=== PATIENT | male | born 1995 | race Caucasian/White ===

== ENCOUNTER 2017-11-14 16:10 | Emergency (ER) | payer SELFPAY ==
[~2017-11-14] VITALS: Ht 182.9 cm; Wt 82.0 kg
[~2017-11-14 16:10] MED LIST: ALBU6.7H INH
[2017-11-14 16:17] VITALS: BP 140/62; PULSE 77; RESP 18; O2SAT 98
[2017-11-14] MEDS ORDERED: SODIUM CHLORIDE 0.9% FLUSH 10 ML FLUSH IVF PRN (17:45)
[2017-11-14 18:47] LABS: AUTOMATED NEUTROPHIL # 6.5 TH/MM3 (1.8-7.7); BASOPHIL # 0.1 TH/MM3 (0-0.2); BASOPHIL % 0.6 % (0.0-2.0); EOSINOPHIL # 0.1 TH/MM3 (0-0.4); HEMATOCRIT 46.1 % (39.0-51.0); HEMOGLOBIN 15.6 GM/DL (13.0-17.0); LYMPH % 19.5 % (9.0-44.0); LYMPHOCYTE # 1.8 TH/MM3 (1.0-4.8); MEAN CELL VOLUME 92.1 FL (80.0-100.0); MEAN CORPUSCULAR HEMOGLOBIN 31.2 PG (27.0-34.0); MEAN CORPUSCULAR HGB CONC 33.9 % (32.0-36.0); MEAN PLATELET VOLUME 8.9 FL (7.0-11.0); MONO % 9.2 % (0.0-8.0); MONOCYTE # 0.9 TH/MM3 (0-0.9); NEUT % 69.7 % (16.0-70.0); PLATELET COUNT 309 TH/MM3 (150-450); RED BLOOD COUNT 5.01 MIL/MM3 (4.50-5.90); RED CELL DISTRIBUTION WIDTH 13.3 % (11.6-17.2); WHITE BLOOD COUNT 9.3 TH/MM3 (4.0-11.0)
[2017-11-14 18:56] LABS: INTERNATIONAL NORMALIZED RATIO 1.1 RATIO; PROTHROMBIN TIME - PATIENT 10.7 SEC (9.8-11.6)
[2017-11-14 19:07] LABS: CREATININE 1.19 MG/DL (0.60-1.30)
--- NOTE | 2017-11-14 19:09 | PD ---
HPI . Rectal bleeding Chief Complaint: GI Complaint Time Seen by Provider: 17:45 Travel History International Travel<30 days: No Contact w/Intl Traveler<30days: No History of Present Illness HPI This patient presents with rectal bleeding. He had one episode just prior to arrival. He states that he had the urge to defecate but passed only blood. He denies any abdominal pain. He has not been running any fever. He denies any hemorrhoids or rectal pain. He denies any previous similar history. He denies any medical problems at all. He is not aware of any causative factor. [facility] Past Medical History ADHD: Yes Diminished Hearing: No GERD: Yes Psychiatric: Yes (ADHD) Immunizations Current: Yes Migraines: Yes Seizures: No Tetanus Vaccination: > 5 Years Influenza Vaccination: No Past Surgical History Surgical History: No Previous Surgery Other Surgery: No Social History Alcohol Use: No Tobacco Use: No Substance Use: Yes ([facility]) Allergies-Medications (Allergen,Severity, Reaction): Coded Allergies: No Known Allergies (Verified , 06/24/14) Reported Meds & Prescriptions Reported Meds & Active Scripts Active No Active Prescriptions or Reported Medications Review of Systems Except as stated in HPI: all other systems reviewed are Neg Gastrointestinal: Positive: Hematochezia, No: Nausea, Vomiting, Abdominal Pain Physical Exam Narrative GENERAL: Awake and alert and in no acute distress. SKIN: Warm and dry. HEAD: Normocephalic/atraumatic. EYES: Pupils are equal. Extraocular movements are intact. NECK: Normal range of motion. CARDIOVASCULAR: Regular rate and rhythm. RESPIRATORY: Nonlabored respirations. ABDOMEN: Soft and nontender. RECTAL: There is no stool in the rectal vault. There is no external hemorrhoid. MUSCULOSKELETAL: Atraumatic. NEUROLOGICAL: Nonfocal. PSYCHIATRIC: Appropriate mood and affect. Data Data Last Documented VS Vital Signs Date Time Temp Pulse Resp B/P (MAP) Pulse Ox O2 Delivery O2 Flow Rate FiO2 11/14/17 17:30 16 11/14/17 16:17 77 140/62 (88) 98 Orders Orders Basic Metabolic Panel (Bmp) (11/14/17 17:45) Complete Blood Count With Diff (11/14/17 17:45) Prothrombin Time / Inr (Pt) (11/14/17 17:45) Act Partial Throm Time (Ptt) (11/14/17 17:45) Iv Access Insert/Monitor (11/14/17 17:45) Sodium Chloride 0.9% Flush (Ns Flush) (11/14/17 17:45) Ct Abd/Pel W Iv Contrast(Rout) (11/14/17 17:45) Labs Laboratory Tests Test 11/14/17 18:00 White Blood Count 9.3 TH/MM3 Red Blood Count 5.01 MIL/MM3 Hemoglobin 15.6 GM/DL Hematocrit 46.1 % Mean Corpuscular Volume 92.1 FL Mean Corpuscular Hemoglobin 31.2 PG Mean Corpuscular Hemoglobin Concent 33.9 % Red Cell Distribution Width 13.3 % Platelet Count 309 TH/MM3 Mean Platelet Volume 8.9 FL Neutrophils (%) (Auto) 69.7 % Lymphocytes (%) (Auto) 19.5 % Monocytes (%) (Auto) 9.2 % Eosinophils (%) (Auto) 1.0 % Basophils (%) (Auto) 0.6 % Neutrophils # (Auto) 6.5 TH/MM3 Lymphocytes # (Auto) 1.8 TH/MM3 Monocytes # (Auto) 0.9 TH/MM3 Eosinophils # (Auto) 0.1 TH/MM3 Basophils # (Auto) 0.1 TH/MM3 CBC Comment DIFF FINAL Differential Comment Prothrombin Time 10.7 SEC Prothromb Time International Ratio 1.1 RATIO Activated Partial Thromboplast Time 24.3 SEC Blood Urea Nitrogen 13 MG/DL Creatinine 1.19 MG/DL Random Glucose 90 MG/DL Calcium Level 10.0 MG/DL Sodium Level 140 MEQ/L Potassium Level 4.0 MEQ/L Chloride Level 103 MEQ/L Carbon Dioxide Level 31.0 MEQ/L Anion Gap 6 MEQ/L Estimat Glomerular Filtration Rate 75 ML/MIN [facility] Medical Decision Making Medical Screen Exam Complete: Yes Emergency Medical Condition: Yes Differential Diagnosis Differential diagnosis includes but is not limited to hemorrhoid, diverticulitis , cancer, coagulopathy Narrative Course This is a young man who presents with the chief complaint of rectal bleeding. He did not have any stool in the rectal vault but the mucus was Hemoccult positive. There was no hemorrhoid palpable or visible to explain blood. Routine GI bleed labs have been ordered as well as a CT of his abdomen. His care is being turned over to Dr. barrett at change of shift. [facility] Point of Care Internal Pos. & Neg. Controls: Passed Fecal Specimen Occult Blood: Positive Diagnosis Primary Impression: Rectal bleeding Scripts No Active Prescriptions or Reported Meds Condition: Estefani Barboza MD Nov 14, 2017 19:09
[2017-11-14 19:10] VITALS: BP 108/58; PULSE 68; RESP 18; O2SAT 100
[2017-11-14] MEDS ORDERED: IOHEXOL 350 MG/ML 10 ML VIAL (for RAD DIAG) IVCONTRAST ONE (19:37)
--- NOTE | 2017-11-14 20:45 | PD ---
Physical Exam Narrative Patient was seen by ED physician and signed out to me. Data Data Last Documented VS Vital Signs Date Time Temp Pulse Resp B/P (MAP) Pulse Ox O2 Delivery O2 Flow Rate FiO2 11/14/17 19:10 68 18 108/58 (75) 100 Room Air Orders Orders Basic Metabolic Panel (Bmp) (11/14/17 17:45) Complete Blood Count With Diff (11/14/17 17:45) Prothrombin Time / Inr (Pt) (11/14/17 17:45) Act Partial Throm Time (Ptt) (11/14/17 17:45) Iv Access Insert/Monitor (11/14/17 17:45) Sodium Chloride 0.9% Flush (Ns Flush) (11/14/17 17:45) Ct Abd/Pel W Iv Contrast(Rout) (11/14/17 17:45) Iohexol 350 Inj (Omnipaque 350 Inj) (11/14/17 19:37) Ed Discharge Order (11/14/17 21:09) Labs Laboratory Tests Test 11/14/17 18:00 White Blood Count 9.3 TH/MM3 Red Blood Count 5.01 MIL/MM3 Hemoglobin 15.6 GM/DL Hematocrit 46.1 % Mean Corpuscular Volume 92.1 FL Mean Corpuscular Hemoglobin 31.2 PG Mean Corpuscular Hemoglobin Concent 33.9 % Red Cell Distribution Width 13.3 % Platelet Count 309 TH/MM3 Mean Platelet Volume 8.9 FL Neutrophils (%) (Auto) 69.7 % Lymphocytes (%) (Auto) 19.5 % Monocytes (%) (Auto) 9.2 % Eosinophils (%) (Auto) 1.0 % Basophils (%) (Auto) 0.6 % Neutrophils # (Auto) 6.5 TH/MM3 Lymphocytes # (Auto) 1.8 TH/MM3 Monocytes # (Auto) 0.9 TH/MM3 Eosinophils # (Auto) 0.1 TH/MM3 Basophils # (Auto) 0.1 TH/MM3 CBC Comment DIFF FINAL Differential Comment Prothrombin Time 10.7 SEC Prothromb Time International Ratio 1.1 RATIO Activated Partial Thromboplast Time 24.3 SEC Blood Urea Nitrogen 13 MG/DL Creatinine 1.19 MG/DL Random Glucose 90 MG/DL Calcium Level 10.0 MG/DL Sodium Level 140 MEQ/L Potassium Level 4.0 MEQ/L Chloride Level 103 MEQ/L Carbon Dioxide Level 31.0 MEQ/L Anion Gap 6 MEQ/L Estimat Glomerular Filtration Rate 75 ML/MIN MDM Supervised Visit with TODD: No Interpretation(s) 5 PM. CBC within normal limits. BMP within normal limits. Narrative Course 22-year-old male with rectal bleeding. No abdominal pain. Diagnosis Primary Impression: Rectal bleeding Patient Instructions: General Instructions Additional Instruction: Protonix as directed. Follow-up with clinical assessment manager persistent problem. Return if worse. Med/Other Pt SpecificInfo: Prescription(s) given Scripts Pantoprazole (Protonix) 20 Mg Tab 20 MG PO DAILY for Reflux, #30 TAB 0 Refills Prov: Jose Loredo MD 11/14/17 Disposition: 01 DISCHARGE HOME Condition: Stable Jose Loredo MD Nov 14, 2017 20:45
--- NOTE | 2017-11-14 20:47 | RADRPT ---
EXAM DATE/TIME: 11/14/2017 19:35 [place] COMPARISON: No previous studies available for comparison. INDICATIONS : Blood in stool. IV CONTRAST: 70 cc Omnipaque 350 (iohexol) IV ORAL CONTRAST: No oral contrast ingested. RADIATION DOSE: 13.12 CTDIvol (mGy) MEDICAL HISTORY : None SURGICAL HISTORY : None. ENCOUNTER: Initial ACUITY: 1 day PAIN SCALE: 0/10 LOCATION: abdomen TECHNIQUE: Volumetric scanning of the abdomen and pelvis was performed. Using automated exposure control and ad justment of the mA and/or kV according to patient size, radiation dose was kept as low as reasonably achievable to obtain optimal diagnostic quality images. DICOM format image data is available electro nically for review and comparison. FINDINGS: LOWER LUNGS: The visualized lower lungs are clear. LIVER: Homogeneous density without lesion. There is no dilation of the biliary tree. No calcified gallston es. SPLEEN: Normal size without lesion. PANCREAS: Within normal limits. KIDNEYS: Normal in size and shape. There is no mass, stone or hydronephrosis. ADRENAL GLANDS: Within normal limits. VASCULAR: There is no aortic aneurysm. BOWEL/MESENTERY: The stomach, small bowel, and colon demonstrate no acute abnormality. There is no free intraperitone al air or fluid. ABDOMINAL WALL: Within normal limits. RETROPERITONEUM: There is no lymphadenopathy. BLADDER: No wall thickening or mass. REPRODUCTIVE: Within normal limits. INGUINAL: There is no lymphadenopathy or hernia. MUSCULOSKELETAL: Within normal limits for patient age. CONCLUSION: No acute disease. Gen Echavarria MD on November 14, 2017 at 20:44 Board Certified Radiologist. This report was verified electronically.
[2017-11-14] MEDS ORDERED: PANT20 PO (21:11)
== END 2017-11-14 21:38 | disposition home or self-care (01) ==
LOC: NEPC 16:10
DX: K62.5 Hemorrhage of anus and rectum (principal); F12.90 Cannabis use, unspecified, uncomplicated
CPT/HCPCS: 74177; 80048; 85025; 85610; 85730; 99284; Q9967